=== PATIENT | male | born 1990 ===

== ENCOUNTER 2018-06-24 00:41 | Emergency (ER) | payer MEDICAID, SELFPAY ==
[2018-06-24 00:54] VITALS: BP 143/80; PULSE 79; RESP 18; TEMP 97.5; O2SAT 98
--- NOTE | 2018-06-24 01:13 | ED PDOC ---
HPI: Dental Pain/Injury Time Seen by Provider: 06/24/18 00:56 Chief Complaint (Nursing): Dental Pain Chief Complaint (Provider): Dental Pain History Per: Patient History/Exam Limitations: no limitations Onset/Duration Of Symptoms: Hrs (prior to arrival) Additional Complaint(s): 27 y/o male with no significant past medical history presents to the ED for tooth pain status post fall prior to arrival. Patient states that he was going up the stair when he tripped and hit his upper lip and teeth against the steps. Patient states he didn't crack any teeth but is concerned that once of his teeth may have moved and become loose. Patient denies any other injury. Past Medical History Reviewed: Historical Data, Nursing Documentation, Vital Signs Vital Signs: Last Vital Signs Temp 97.5 F L 06/24/18 00:50 Pulse 79 06/24/18 00:50 Resp 18 06/24/18 00:50 BP 143/80 06/24/18 00:50 Pulse Ox 98 06/24/18 00:50 - Medical History PMH: No Chronic Diseases, GERD - Surgical History Surgical History: No Surg Hx - Family History Family History: States: CAD, Hypertension - Immunization History Hx Tetanus Toxoid Vaccination: Yes Hx Influenza Vaccination: No Hx Pneumococcal Vaccination: No - Home Medications Home Medications: Ambulatory Orders Medication Instructions Recorded metroNIDAZOLE [Flagyl] 500 mg PO TID #8 tab 08/26/17 - Allergies Allergies/Adverse Reactions: Allergies Allergy/AdvReac Type Severity Reaction Status Date / Time No Known Allergies Allergy Verified 06/24/18 00:50 Review of Systems ROS Statement: Except As Marked, All Systems Reviewed And Found Negative ENT: Positive for: Other (Tooth pain) Physical Exam - Reviewed Nursing Documentation Reviewed: Yes Vital Signs Reviewed: Yes - Physical Exam Appears: Positive for: Well, Non-toxic, No Acute Distress Head Exam: Positive for: ATRAUMATIC, NORMOCEPHALIC Skin: Positive for: Normal Color Eye Exam: Positive for: EOMI, Normal appearance, PERRL ENT: Positive for: Other (Mouth: Abrasion to upper lip. Teeth: dentition intact, no fracture, no laxity) Extremity: Positive for: Normal ROM. Negative for: Pedal Edema, Deformity Neurologic/Psych: Positive for: Alert, Oriented. Negative for: Motor/Sensory Deficits - ECG O2 Sat by Pulse Oximetry: 98 (RA) Pulse Ox Interpretation: Normal Medical Decision Making Medical Decision Making: Time: 01:10 Initial Impression: Tooth contusion Initial Plan: Recommended follow up with Dentistry tomorrow. Patient is stable for discharge. Scribe Attestation: Documented by James Camejo acting as a scribe for Ike Kelly MD. Provider Scribe Attestation: All medical record entries made by the Scribe were at my direction and personally dictated by me. I have reviewed the chart and agree that the record accurately reflects my personal performance of the history, physical exam, medical decision making, and the department course for this patient. I have also personally directed, reviewed, and agree with the discharge instructions and disposition. Disposition - Clinical Impression Clinical Impression: Dental contusion - Patient ED Disposition Is Patient to be Admitted: No - Disposition Disposition: Routine/Home Disposition Time: 01:10 Condition: STABLE Additional Instructions: See a dentist tomorrow. Instructions: Contusion (DC) Forms: [employer] ([place])
== END 2018-06-24 01:30 | disposition home or self-care (01) ==
LOC: H.ER 00:41
DX: K08.89 Other specified disorders of teeth and supporting structures (principal)